=== PATIENT | male | born 1990 | race Caucasian/White ===

== ENCOUNTER 2017-12-30 12:30 | Emergency (ER) | payer MEDICARE, OTHER ==
[~2017-12-30] VITALS: Ht 204936.6 cm; Wt 63.0 kg
[2017-12-30 13:46] LABS: BASOPHILS % (AUTO) 0.2 % (0-1); EOSINOPHILS # (AUTO) 0.2 X10'3 (0-0.9); EOSINOPHILS % (AUTO) 2.3 % (0-6); HEMATOCRIT 44.9 % (42.0-52.0); HEMOGLOBIN 15.4 g/dl (14.0-17.9); LYMPHOCYTES # (AUTO) 1.8 X10'3 (1.1-4.8); LYMPHOCYTES % (AUTO) 23.8 % (21-51); MEAN CORPUSCULAR HEMOGLOBIN 30.2 PG (27.0-31.0); MEAN CORPUSCULAR HGB CONC 34.4 % (33.0-36.5); MEAN CORPUSCULAR VOLUME 87.7 FL (78-98); MEAN PLATELET VOLUME 6.7 FL (7.4-10.4); MONOCYTES # (AUTO) 0.6 X10'3 (0-0.9); MONOCYTES % (AUTO) 7.4 % (2-12); NEUTROPHILS % (AUTO) 66.3 % (42-75); PLATELET COUNT 321 X10'3 (140-440); RED BLOOD COUNT 5.12 X10'6 (4.70-6.10); RED CELL DISTRIBUTION WIDTH 13.4 % (11.5-14.5); WHITE BLOOD COUNT 7.6 X10'3 (4.5-11.0)
[2017-12-30 13:48] LABS: URINE AMPHETAMINE SCREEN POSITIVE (Neg); URINE BARBITUATE SCREEN NEGATIVE (Neg); URINE BENZODIAZEPINES SCREEN NEGATIVE (Neg); URINE CANNABINOID SCREEN POSITIVE (Neg); URINE COCAINE SCREEN NEGATIVE (Neg); URINE METHADONE SCREEN NEGATIVE (Neg); URINE OPIATE SCREEN NEGATIVE (Neg); URINE PHENCYCLIDINE SCREEN NEGATIVE (Neg)
[2017-12-30 13:52] LABS: CLARITY,URINE CLEAR (Clear); COLOR,URINE YELLOW (Yellow); GLUCOSE, URINE NEGATIVE (Neg); KETONES,URINE NEGATIVE (Neg); LEUKOCYTE ESTERASE ,URINE NEGATIVE (Neg); NITRITES, URINE NEGATIVE (Neg); OCCULT BLOOD,URINE NEGATIVE (Neg); PROTEIN,URINE NEGATIVE (Neg)
[2017-12-30 14:00] LABS: ALANINE AMINOTRANSFERASE 28 U/L (12-78); ALBUMIN 4.3 G/DL (3.4-5.0); ALBUMIN/GLOBULIN RATIO 1.1 (1.1-1.5); ALKALINE PHOSPHATASE 59 IU/L (46-116); ANION GAP 14 (8-16); ASPARTATE AMINO TRANSFERASE 21 U/L (10-37); BILIRUBIN,TOTAL 0.7 MG/DL (0.1-1.0); BLOOD UREA NITROGEN 10 MG/DL (7-18); BUN/CREATININE RATIO 10.9 (5.4-32.0); CALCIUM 9.1 MG/DL (8.5-10.1); CHLORIDE 104 MMOL/L (99-107); CREATININE 0.92 MG/DL (0.60-1.10); GLUCOSE 108 MG/DL (70-104); SODIUM 142 MMOL/L (135-145); TOTAL CARBON DIOXIDE 24.3 MMOL/L (24-32); TOTAL PROTEIN 8.1 G/DL (6.4-8.2); eGFR > 90 ML/MIN
[2017-12-30 14:03] LABS: UA COLLECTION TYPE VOIDED
[2017-12-30 14:09] LABS: ACETAMINOPHEN < 2.0 UG/ML (10-30); ETHANOL < 0.010 GM/DL (0.0-0.010)
[2017-12-30] MEDS ORDERED: potassium Cl oral solution 20 MEQ/15 ML PO STA (14:17)
[2017-12-30] MEDS ORDERED: LORazepam 2 mg/ml vial IV STA (14:17)
[2017-12-30] MEDS ORDERED: haloperidol lactate 5mg/ml inj IM ONE (14:55)
[2017-12-30] MEDS ORDERED: HYDR-3686 PO (16:44)
[2017-12-30] MEDS ORDERED: ARIP20TA4 PO (16:44)
[2017-12-30] MEDS ORDERED: LAMO100T89 PO (16:44)
[2017-12-30] MEDS ORDERED: hydrOXYzine 25 MG tablet PO PRN ×2 (17:00)
[2017-12-30] MEDS: lamoTRIgine 100mg tablet PO SCH (20:00)
[2017-12-31] MEDS ORDERED: aripiprazole 5mg tablet PO SCH (08:00)
[2017-12-31] MEDS: lamoTRIgine 100mg tablet PO SCH ×2 (08:34→20:40)
[2018-01-01] MEDS: lamoTRIgine 100mg tablet PO SCH ×2 (08:35→20:08)
[2018-01-01 17:34] VITALS: BP 122/77
[2018-01-01] MEDS ORDERED: potassium Cl 20 mEq SR tablet PO STA (19:59)
[2018-01-01] MEDS ORDERED: ARIP20TA4 PO ×2 (20:55→21:03)
[2018-01-01] MEDS ORDERED: aripiprazole 5mg tablet PO SCH (21:00)
[2018-01-01] MEDS ORDERED: HYDR-3686 PO (21:03)
== END 2018-01-01 20:37 ==
LOC: ER 12:32
DX: R45.851 Suicidal ideations (principal); R41.82 Altered mental status, unspecified; R31.9 Hematuria, unspecified; F12.90 Cannabis use, unspecified, uncomplicated; Z59.0 Homelessness
CPT/HCPCS: 36415; 80053; 80305; 80320; 80329; 81003; 85025; 96372; 96374; 99285; J1630; J2060; Q0177

== ENCOUNTER 2018-01-01 17:50 | Inpatient (IN) | payer MEDICARE, OTHER ==
[~2018-01-01] VITALS: Ht 186.7 cm; Wt 70.1 kg
[~2018-01-01 17:50] MED LIST: ARIP20TA4 PO; HYDR-3686 PO; LAMO100T89 PO
[2018-01-01] MEDS ORDERED: ARIP20TA4 PO ×2 (20:55→21:03)
[2018-01-01] MEDS ORDERED: HYDR-3686 PO (21:03)
[2018-01-01 21:20] VITALS: BP 113/63
[2018-01-01] MEDS: lamoTRIgine 100mg tablet PO SCH (21:26)
[2018-01-01] MEDS: aripiprazole 5mg tablet PO SCH (21:59)
[2018-01-02] MEDS ORDERED: magnesium hydroxide 30ml (MOM) UD suspension PO PRN (02:50)
[2018-01-02] MEDS ORDERED: acetaminophen 325mg tablet PO PRN ×2 (02:50)
[2018-01-02] MEDS ORDERED: mag hydrox/Alum hydrox/simeth 30ml oral suspension PO PRN (02:50)
[2018-01-02] MEDS: lamoTRIgine 100mg tablet PO SCH ×2 (07:25→21:15)
[2018-01-02 08:00] VITALS: BP 119/68
[2018-01-02 08:22] LABS: CHOL/HDL RATIO 3.3 (0.00-4.99); CHOLESTEROL 113 MG/DL (0-200); HDL CHOLESTEROL 34 MG/DL (35-60); HEMOGLOBIN A1C 5.3 % (4.5-6.2); LDL CHOLESTEROL 67 MG/DL (50-100); TRIGLYCERIDES 42 MG/DL (20-135)
[2018-01-02 09:15] LABS: ALBUMIN 3.7 G/DL (3.4-5.0); ANION GAP 10 (8-16); BLOOD UREA NITROGEN 19 MG/DL (7-18); BUN/CREATININE RATIO 22.9 (5.4-32.0); CHLORIDE 107 MMOL/L (99-107); CREATININE 0.83 MG/DL (0.60-1.10); GLUCOSE 84 MG/DL (70-104); POTASSIUM 4.3 MMOL/L (3.5-5.1); SODIUM 143 MMOL/L (135-145); TOTAL CARBON DIOXIDE 26.5 MMOL/L (24-32); eGFR > 90 ML/MIN
[2018-01-02 09:47] VITALS: BP 113/68
[2018-01-02 19:48] VITALS: BP 110/53
[2018-01-02] MEDS: aripiprazole 5mg tablet PO SCH (21:10)
[2018-01-03 08:00] VITALS: BP 105/56
[2018-01-03] MEDS: lamoTRIgine 100mg tablet PO SCH ×2 (08:59→20:11)
[2018-01-03] MEDS: aripiprazole 5mg tablet PO SCH (20:11)
[2018-01-03] MEDS: hydrOXYzine 25 MG tablet PO PRN (20:11)
[2018-01-03 20:33] VITALS: BP 117/71
[2018-01-04] MEDS: lamoTRIgine 100mg tablet PO SCH ×2 (07:45→20:34)
[2018-01-04 08:50] VITALS: BP 113/70
[2018-01-04] MEDS: hydrOXYzine 25 MG tablet PO PRN (12:31)
[2018-01-04 19:11] VITALS: BP 126/78
[2018-01-04] MEDS: aripiprazole 5mg tablet PO SCH (20:34)
[2018-01-05] MEDS: hydrOXYzine 25 MG tablet PO PRN (05:08)
[2018-01-05] MEDS: lamoTRIgine 100mg tablet PO SCH ×2 (07:44→20:23)
[2018-01-05 07:58] VITALS: BP 116/73
[2018-01-05 19:55] VITALS: BP 120/66
[2018-01-05] MEDS: aripiprazole 5mg tablet PO SCH (20:24)
[2018-01-06] MEDS ORDERED: LAMO100T89 PO (08:02)
[2018-01-06] MEDS ORDERED: ARIP20TA10 PO (08:02)
[2018-01-06] MEDS ORDERED: HYDR-3686 PO (08:02)
[2018-01-06] MEDS: lamoTRIgine 100mg tablet PO SCH (08:18)
[2018-01-06 08:32] VITALS: BP 126/78
== END 2018-01-06 10:15 | disposition home or self-care (01) | DRG 885 ==
LOC: ADULT MH 17:50
PROVIDERS: ADMIT Psychiatry & Neurology Psychiatry; ATTEND Psychiatry & Neurology Psychiatry
DX: F29 Unspecified psychosis not due to a substance or known physiological condition (principal); E87.6 Hypokalemia; F31.9 Bipolar disorder, unspecified; M54.5 Low back pain; G89.29 Other chronic pain; F15.10 Other stimulant abuse, uncomplicated; F12.10 Cannabis abuse, uncomplicated; F17.210 Nicotine dependence, cigarettes, uncomplicated; Z59.0 Homelessness
CPT/HCPCS: 36415; 80048; 80061; 83036; 87070; 93005; 99285; 99406; Q0177

== ENCOUNTER 2018-01-21 11:45 | Emergency (ER) | payer MEDICARE, OTHER ==
[~2018-01-21] VITALS: Ht 188 cm; Wt 51.0 kg
[~2018-01-21 11:45] MED LIST changes: +ARIP20TA10 PO; -ARIP20TA4 PO
[2018-01-21 11:48] VITALS: BP 134/69
== END 2018-01-21 13:06 | disposition home or self-care (01) ==
LOC: ER 11:46
DX: S90.822A Blister (nonthermal), left foot, initial encounter (principal); S90.821A Blister (nonthermal), right foot, initial encounter; F17.200 Nicotine dependence, unspecified, uncomplicated; Z59.0 Homelessness; X58.XXXA Exposure to other specified factors, initial encounter; Y93.89 Activity, other specified; Y92.89 Other specified places as the place of occurrence of the external cause; Y99.8 Other external cause status
CPT/HCPCS: 99281

== ENCOUNTER 2018-02-12 09:00 | Inpatient (IN) | payer MEDICARE, MEDICAID ==
[~2018-02-12] VITALS: Ht 188 cm; Wt 73.0 kg
[2018-02-12] VITALS (9 sets, daily range): BP systolic 96–134; BP diastolic 48–96
[2018-02-12] MEDS ORDERED: ceFAZolin 1000mg inj IV ONE (09:25)
[2018-02-12] MEDS ORDERED: normal saline 1000ML IV soln IVB ONE (09:25)
[2018-02-12] MEDS ORDERED: vancomycin/NS 1 GM ADD-VANTAGE 250 ML X 1 DOSE IV ONE (09:40)
[2018-02-12] MEDS ORDERED: ceFAZolin inj. 2,000 MG in normal saline 100ml IV soln 100 ML IV ONE (09:50)
[2018-02-12 09:57] LABS: BASOPHILS % (AUTO) 0 % (0-1); EOSINOPHILS # (AUTO) 0.3 X10'3 (0-0.9); EOSINOPHILS % (AUTO) 2.2 % (0-6); HEMATOCRIT 39.7 % (42.0-52.0); HEMOGLOBIN 13.6 g/dl (14.0-17.9); LYMPHOCYTES # (AUTO) 1.4 X10'3 (1.1-4.8); LYMPHOCYTES % (AUTO) 8.9 % (21-51); MEAN CORPUSCULAR HEMOGLOBIN 29.9 PG (27.0-31.0); MEAN CORPUSCULAR HGB CONC 34.3 % (33.0-36.5); MEAN CORPUSCULAR VOLUME 87.2 FL (78-98); MEAN PLATELET VOLUME 6.1 FL (7.4-10.4); MONOCYTES # (AUTO) 0.9 X10'3 (0-0.9); MONOCYTES % (AUTO) 5.6 % (2-12); NEUTROPHILS # (AUTO) 13.2 X10'3 (1.8-7.7); NEUTROPHILS % (AUTO) 83.3 % (42-75); PLATELET COUNT 403 X10'3 (140-440); RED BLOOD COUNT 4.55 X10'6 (4.70-6.10); RED CELL DISTRIBUTION WIDTH 13.5 % (11.5-14.5); WHITE BLOOD COUNT 15.9 X10'3 (4.5-11.0)
[2018-02-12 10:17] LABS: ALANINE AMINOTRANSFERASE 21 U/L (12-78); ALBUMIN 3.3 G/DL (3.4-5.0); ALBUMIN/GLOBULIN RATIO 0.8 (1.1-1.5); ALKALINE PHOSPHATASE 48 IU/L (46-116); ANION GAP 6 (8-16); ASPARTATE AMINO TRANSFERASE 12 U/L (10-37); BILIRUBIN,TOTAL 0.4 MG/DL (0.1-1.0); BLOOD UREA NITROGEN 14 MG/DL (7-18); BUN/CREATININE RATIO 20.6 (5.4-32.0); CALCIUM 8.7 MG/DL (8.5-10.1); CHLORIDE 104 MMOL/L (99-107); CREATININE 0.68 MG/DL (0.60-1.10); GLUCOSE 93 MG/DL (70-104); POTASSIUM 3.8 MMOL/L (3.5-5.1); SODIUM 139 MMOL/L (135-145); TOTAL PROTEIN 7.2 G/DL (6.4-8.2); eGFR > 90 ML/MIN
[2018-02-12] MEDS ORDERED: NO HOME MEDS (10:28)
[2018-02-12] MEDS ORDERED: ceFAZolin 1000mg inj ONE (12:15)
[2018-02-12] MEDS ORDERED: bacitracin 15gm ointment TP ONE (12:16)
[2018-02-12] MEDS ORDERED: desflurane 240ml liquid inh. IH ONE (12:30)
[2018-02-12] MEDS ORDERED: propofol 10mg/ml 20ml vial IV ONE (12:30)
[2018-02-12] MEDS ORDERED: rocuronium 10mg/ml inj IV ONE ×2 (12:30→12:48)
[2018-02-12] MEDS ORDERED: LIDOcaine 2% (20mg/ml) 5ml vial ONE ×2 (12:30→12:48)
[2018-02-12] MEDS ORDERED: succinylcholine 20mg/ml inj IV ONE ×2 (12:30→12:48)
[2018-02-12] MEDS ORDERED: midazolam 2 mg/2 ml injection ONE (12:42)
[2018-02-12] MEDS ORDERED: fentaNYL/PF 50MCG/1 ML 2ML syringe ONE (12:42)
[2018-02-12] MEDS ORDERED: LIDOcaine 2% 5ml jelly ONE (12:45)
[2018-02-12] MEDS ORDERED: propofol inj 20 ML IV ONE (12:48)
[2018-02-12] MEDS ORDERED: morphine 4 MG/ML inj SYRINge IV PRN ×4 (13:00→17:25)
[2018-02-12] MEDS ORDERED: acetaminophen 1,000mg/100ml IV 100 ML IV PRN (13:00)
[2018-02-12] MEDS ORDERED: ondansetron/PF 4mg/2ml inj IV PRN ×2 (13:00→17:25)
[2018-02-12] MEDS ORDERED: meperidine/PF 25mg/ml syringe IV PRN ×2 (13:00)
[2018-02-12] MEDS ORDERED: proCHLORperazine 10 MG/2 ml inj IV PRN (13:00)
[2018-02-12] MEDS ORDERED: ringers solution, lacted 1,000 ML IV SCH (13:00)
[2018-02-12] MEDS: meperidine/PF 25mg/ml syringe IV PRN ×2 (13:34→14:13)
[2018-02-12] MEDS ORDERED: magnesium hydroxide 30ml (MOM) UD suspension PO PRN (17:25)
[2018-02-12] MEDS ORDERED: potassium Cl 20 mEq SR tablet PO PRN ×2 (17:25)
[2018-02-12] MEDS ORDERED: acetaminophen 325mg tablet PO PRN (17:25)
[2018-02-12] MEDS ORDERED: magnesium 2GM in 50ml NS 50 ML IV PRN (17:25)
[2018-02-12] MEDS ORDERED: mag hydrox/Alum hydrox/simeth 30ml oral suspension PO PRN (17:25)
[2018-02-12] MEDS ORDERED: potassium Cl 40MEQ/NS 500ml 500 ML IV PRN ×2 (17:25)
[2018-02-12] MEDS ORDERED: magnesium 4gm in 100ml NS 100 ML IV PRN (17:25)
[2018-02-12] MEDS ORDERED: HYDROcodone/acetaminophen 10/325mg tab PO PRN ×3 (20:05→20:10)
[2018-02-13] MEDS: cefepime 1GM/NS ADD-VANTAGE 100 ML IV SCH ×3 (00:14→16:38)
[2018-02-13 02:30] VITALS: BP 99/53
[2018-02-13 06:00] VITALS: BP 96/48
[2018-02-13] MEDS: HYDROcodone/acetaminophen 10/325mg tab PO PRN ×2 (06:02→15:02)
[2018-02-13 06:58] LABS: BASOPHILS # (AUTO) 0.1 X10'3 (0-0.2); BASOPHILS % (AUTO) 1.2 % (0-1); EOSINOPHILS # (AUTO) 0.3 X10'3 (0-0.9); EOSINOPHILS % (AUTO) 2.6 % (0-6); HEMATOCRIT 39.3 % (42.0-52.0); HEMOGLOBIN 13.6 g/dl (14.0-17.9); LYMPHOCYTES # (AUTO) 1.5 X10'3 (1.1-4.8); MEAN CORPUSCULAR HEMOGLOBIN 29.9 PG (27.0-31.0); MEAN CORPUSCULAR HGB CONC 34.5 % (33.0-36.5); MEAN CORPUSCULAR VOLUME 86.6 FL (78-98); MEAN PLATELET VOLUME 6.6 FL (7.4-10.4); MONOCYTES # (AUTO) 0.6 X10'3 (0-0.9); MONOCYTES % (AUTO) 5.6 % (2-12); NEUTROPHILS # (AUTO) 8.7 X10'3 (1.8-7.7); NEUTROPHILS % (AUTO) 77.6 % (42-75); PLATELET COUNT 362 X10'3 (140-440); RED BLOOD COUNT 4.54 X10'6 (4.70-6.10); RED CELL DISTRIBUTION WIDTH 13.5 % (11.5-14.5); WHITE BLOOD COUNT 11.3 X10'3 (4.5-11.0)
[2018-02-13 07:19] LABS: ALANINE AMINOTRANSFERASE 19 U/L (12-78); ALBUMIN 2.9 G/DL (3.4-5.0); ALBUMIN/GLOBULIN RATIO 0.8 (1.1-1.5); ALKALINE PHOSPHATASE 49 IU/L (46-116); ANION GAP 10 (8-16); ASPARTATE AMINO TRANSFERASE 12 U/L (10-37); BILIRUBIN,TOTAL 0.6 MG/DL (0.1-1.0); BLOOD UREA NITROGEN 9 MG/DL (7-18); BUN/CREATININE RATIO 12.7 (5.4-32.0); CALCIUM 8.6 MG/DL (8.5-10.1); CHLORIDE 104 MMOL/L (99-107); CREATININE 0.71 MG/DL (0.60-1.10); GLUCOSE 84 MG/DL (70-104); MAGNESIUM 1.8 MG/DL (1.5-2.4); SODIUM 140 MMOL/L (135-145); TOTAL CARBON DIOXIDE 26.2 MMOL/L (24-32); TOTAL PROTEIN 6.6 G/DL (6.4-8.2); eGFR > 90 ML/MIN
[2018-02-13] MEDS: K and/or MAG REPLACEMENT MC SCH (08:00)
[2018-02-13 10:00] VITALS: BP 95/37
[2018-02-13] MEDS ORDERED: aripiprazole 5mg tablet PO SCH (11:30)
[2018-02-13] MEDS: lamoTRIgine 100mg tablet PO SCH ×2 (12:38→20:10)
[2018-02-13 14:30] VITALS: BP 96/40
[2018-02-13 18:30] VITALS: BP 103/46
[2018-02-13] MEDS: lactobacillus rhamnosus 10,000 MMU CELLS/CAPSULE PO SCH (20:10)
[2018-02-13] MEDS: aripiprazole 5mg tablet PO SCH (20:10)
[2018-02-13 22:30] VITALS: BP 91/42
[2018-02-14] MEDS: cefepime 1GM/NS ADD-VANTAGE 100 ML IV SCH ×4 (00:06→23:15)
[2018-02-14 06:00] VITALS: BP 114/57
[2018-02-14 07:07] LABS: BASOPHILS # (AUTO) 0.1 X10'3 (0-0.2); BASOPHILS % (AUTO) 0.7 % (0-1); EOSINOPHILS # (AUTO) 0.3 X10'3 (0-0.9); EOSINOPHILS % (AUTO) 3.6 % (0-6); HEMATOCRIT 37.6 % (42.0-52.0); HEMOGLOBIN 12.8 g/dl (14.0-17.9); LYMPHOCYTES # (AUTO) 1.9 X10'3 (1.1-4.8); LYMPHOCYTES % (AUTO) 25.8 % (21-51); MEAN CORPUSCULAR HEMOGLOBIN 29.9 PG (27.0-31.0); MEAN CORPUSCULAR HGB CONC 34.2 % (33.0-36.5); MEAN CORPUSCULAR VOLUME 87.6 FL (78-98); MEAN PLATELET VOLUME 6.2 FL (7.4-10.4); MONOCYTES # (AUTO) 0.7 X10'3 (0-0.9); MONOCYTES % (AUTO) 9.1 % (2-12); NEUTROPHILS # (AUTO) 4.5 X10'3 (1.8-7.7); NEUTROPHILS % (AUTO) 60.8 % (42-75); PLATELET COUNT 379 X10'3 (140-440); RED BLOOD COUNT 4.29 X10'6 (4.70-6.10); RED CELL DISTRIBUTION WIDTH 13.2 % (11.5-14.5); WHITE BLOOD COUNT 7.4 X10'3 (4.5-11.0)
[2018-02-14 07:31] LABS: ALANINE AMINOTRANSFERASE 18 U/L (12-78); ALBUMIN 2.7 G/DL (3.4-5.0); ALBUMIN/GLOBULIN RATIO 0.8 (1.1-1.5); ALKALINE PHOSPHATASE 37 IU/L (46-116); ANION GAP 5 (8-16); ASPARTATE AMINO TRANSFERASE 10 U/L (10-37); BILIRUBIN,TOTAL 0.3 MG/DL (0.1-1.0); BLOOD UREA NITROGEN 14 MG/DL (7-18); BUN/CREATININE RATIO 16.5 (5.4-32.0); CALCIUM 8.4 MG/DL (8.5-10.1); CHLORIDE 103 MMOL/L (99-107); CREATININE 0.85 MG/DL (0.60-1.10); GLUCOSE 79 MG/DL (70-104); MAGNESIUM 1.9 MG/DL (1.5-2.4); SODIUM 139 MMOL/L (135-145); TOTAL CARBON DIOXIDE 30.6 MMOL/L (24-32); TOTAL PROTEIN 6.3 G/DL (6.4-8.2); eGFR > 90 ML/MIN
[2018-02-14] MEDS: lamoTRIgine 100mg tablet PO SCH ×2 (07:54→20:21)
[2018-02-14] MEDS: lactobacillus rhamnosus 10,000 MMU CELLS/CAPSULE PO SCH ×2 (07:54→20:21)
[2018-02-14] MEDS: K and/or MAG REPLACEMENT MC SCH (08:00)
[2018-02-14 10:00] VITALS: BP 104/49
[2018-02-14 18:00] VITALS: BP 106/59
[2018-02-14] MEDS: aripiprazole 5mg tablet PO SCH (20:21)
[2018-02-14 22:00] VITALS: BP 111/50
[2018-02-15 05:20] LABS: BASOPHILS % (AUTO) 0.2 % (0-1); EOSINOPHILS # (AUTO) 0.3 X10'3 (0-0.9); EOSINOPHILS % (AUTO) 3.3 % (0-6); HEMATOCRIT 39.5 % (42.0-52.0); HEMOGLOBIN 13.4 g/dl (14.0-17.9); LYMPHOCYTES # (AUTO) 1.3 X10'3 (1.1-4.8); LYMPHOCYTES % (AUTO) 16.8 % (21-51); MEAN CORPUSCULAR HEMOGLOBIN 29.8 PG (27.0-31.0); MEAN CORPUSCULAR VOLUME 87.7 FL (78-98); MONOCYTES # (AUTO) 0.6 X10'3 (0-0.9); MONOCYTES % (AUTO) 8.1 % (2-12); NEUTROPHILS # (AUTO) 5.7 X10'3 (1.8-7.7); NEUTROPHILS % (AUTO) 71.6 % (42-75); PLATELET COUNT 418 X10'3 (140-440); RED BLOOD COUNT 4.51 X10'6 (4.70-6.10); WHITE BLOOD COUNT 7.9 X10'3 (4.5-11.0)
[2018-02-15 05:45] LABS: ALANINE AMINOTRANSFERASE 21 U/L (12-78); ALBUMIN/GLOBULIN RATIO 0.8 (1.1-1.5); ALKALINE PHOSPHATASE 40 IU/L (46-116); ANION GAP 5 (8-16); ASPARTATE AMINO TRANSFERASE 11 U/L (10-37); BILIRUBIN,TOTAL 0.2 MG/DL (0.1-1.0); BLOOD UREA NITROGEN 13 MG/DL (7-18); BUN/CREATININE RATIO 17.1 (5.4-32.0); CALCIUM 8.9 MG/DL (8.5-10.1); CHLORIDE 102 MMOL/L (99-107); CREATININE 0.76 MG/DL (0.60-1.10); GLUCOSE 87 MG/DL (70-104); MAGNESIUM 1.9 MG/DL (1.5-2.4); POTASSIUM 4.2 MMOL/L (3.5-5.1); SODIUM 137 MMOL/L (135-145); TOTAL CARBON DIOXIDE 29.6 MMOL/L (24-32); TOTAL PROTEIN 6.9 G/DL (6.4-8.2); eGFR > 90 ML/MIN
[2018-02-15 06:00] VITALS: BP 106/62
[2018-02-15] MEDS: lactobacillus rhamnosus 10,000 MMU CELLS/CAPSULE PO SCH (07:52)
[2018-02-15] MEDS: lamoTRIgine 100mg tablet PO SCH (07:52)
[2018-02-15] MEDS: cefepime 1GM/NS ADD-VANTAGE 100 ML IV SCH (07:53)
[2018-02-15] MEDS: K and/or MAG REPLACEMENT MC SCH (07:53)
[2018-02-15] MEDS ORDERED: ARIP5TAB20 PO (10:38)
[2018-02-15] MEDS ORDERED: LEVO500T2 PO (10:38)
[2018-02-15] MEDS ORDERED: LAMO100T89 PO (10:38)
[2018-02-15 11:48] VITALS: BP 117/56
[2018-03-22] MEDS ORDERED: CEPH500C5 PO (01:27)
[2018-03-22] MEDS ORDERED: DIPH-423 PO (01:27)
[2018-03-22] MEDS ORDERED: TRIA15CR61 TOP (01:27)
[2018-03-22] MEDS ORDERED: SULF1TAB49 PO (01:27)
[2018-03-22] MEDS ORDERED: PERM60CR19 TP (01:28)
== END 2018-02-15 12:25 | disposition home or self-care (01) | DRG 872 ==
LOC: ER 09:01 → ORTHO 4S 17:26
PROVIDERS: ADMIT Family Medicine; ATTEND Family Medicine
PROC: 0J9K00Z Drainage of Left Hand Subcutaneous Tissue and Fascia with Drainage Device, Open Approach (ICD-10-PCS; principal; 2018-02-12 12:40)
DX: A41.9 Sepsis, unspecified organism (principal); L02.512 Cutaneous abscess of left hand; F84.0 Autistic disorder; F12.90 Cannabis use, unspecified, uncomplicated; F29 Unspecified psychosis not due to a substance or known physiological condition; F31.9 Bipolar disorder, unspecified; M65.842 Other synovitis and tenosynovitis, left hand; F17.210 Nicotine dependence, cigarettes, uncomplicated; F43.10 Post-traumatic stress disorder, unspecified; M19.042 Primary osteoarthritis, left hand; Z59.0 Homelessness; L03.012 Cellulitis of left finger; B95.4 Other streptococcus as the cause of diseases classified elsewhere
CPT/HCPCS: 36415; 73130; 80053; 83735; 85025; 87070; 87075; 87077; 87186; 96365; 96366; 96375; 99285; A6222; A6258; A6446; A6449; A7000; J0330; J0690; J0692; J2001; J2175; J2250; J2405; J2704; J3010; J3370; J7030; J7120

== ENCOUNTER 2018-02-21 13:33 | Outpatient (CLI) | payer MEDICARE, MEDICAID ==
[~2018-02-21 13:33] MED LIST changes: -ARIP20TA10 PO; +ARIP5TAB20 PO; -HYDR-3686 PO; +LEVO500T2 PO
== END 2018-02-21 14:12 | disposition home or self-care (01) ==
LOC: ORTHO 13:33
PROVIDERS: ATTEND Nurse Practitioner Family
DX: M65.842 Other synovitis and tenosynovitis, left hand (principal); F17.210 Nicotine dependence, cigarettes, uncomplicated; F12.90 Cannabis use, unspecified, uncomplicated; F15.90 Other stimulant use, unspecified, uncomplicated; Z59.0 Homelessness; Z56.0 Unemployment, unspecified
CPT/HCPCS: 99213; A6449

== ENCOUNTER 2018-03-01 13:12 | Outpatient (CLI) | payer MEDICARE, MEDICAID ==
[~2018-03-01 13:12] MED LIST changes: -LEVO500T2 PO
== END 2018-03-01 13:51 | disposition home or self-care (01) ==
LOC: ORTHO 13:12
PROVIDERS: ATTEND Nurse Practitioner Family
DX: M65.822 Other synovitis and tenosynovitis, left upper arm (principal); Z59.0 Homelessness
CPT/HCPCS: 99213; A6449

== ENCOUNTER 2018-03-14 13:06 | Outpatient (CLI) | payer MEDICARE, MEDICAID ==
[2018-03-14 13:05] VITALS: BP 136/74
[2018-03-22] MEDS ORDERED: DIPH-423 PO (01:27)
[2018-03-22] MEDS ORDERED: SULF1TAB49 PO (01:27)
[2018-03-22] MEDS ORDERED: TRIA15CR61 TOP (01:27)
[2018-03-22] MEDS ORDERED: CEPH500C5 PO (01:27)
[2018-03-22] MEDS ORDERED: PERM60CR19 TP (01:28)
== END 2018-03-14 13:30 | disposition home or self-care (01) ==
LOC: ORTHO 13:06
PROVIDERS: ATTEND Nurse Practitioner Family
DX: M65.88 Other synovitis and tenosynovitis, other site (principal); F17.210 Nicotine dependence, cigarettes, uncomplicated; F31.9 Bipolar disorder, unspecified; Z56.0 Unemployment, unspecified; Z59.0 Homelessness
CPT/HCPCS: 99213

== ENCOUNTER 2018-03-14 20:02 | Emergency (ER) | payer MEDICARE, MEDICAID ==
[~2018-03-14] VITALS: Ht 188 cm; Wt 56.1 kg
[2018-03-14 20:10] VITALS: BP 129/87
== END 2018-03-14 21:44 | disposition home or self-care (01) ==
LOC: ER 20:02
DX: S99.922A Unspecified injury of left foot, initial encounter (principal); Z59.0 Homelessness; Z56.0 Unemployment, unspecified; Z98.890 Other specified postprocedural states; Z79.899 Other long term (current) drug therapy; X58.XXXA Exposure to other specified factors, initial encounter; Y93.89 Activity, other specified; Y92.89 Other specified places as the place of occurrence of the external cause; Y99.8 Other external cause status
CPT/HCPCS: 99281

== ENCOUNTER 2018-03-24 19:21 | Emergency (ER) | payer MEDICARE, MEDICAID ==
[~2018-03-24] VITALS: Ht 1860 cm; Wt 68.6 kg
[~2018-03-24 19:21] MED LIST changes: +CEPH500C5 PO; +DIPH-423 PO; +PERM60CR19 TP; +SULF1TAB49 PO; +TRIA15CR61 TOP
[2018-03-24] MEDS ORDERED: ARIP15TA8 PO (20:31)
[2018-03-24] MEDS ORDERED: LAMO100T89 PO (20:31)
[2018-03-24 20:36] LABS: BASOPHILS % (AUTO) 0 % (0-1); EOSINOPHILS # (AUTO) 0.2 X10'3 (0-0.9); EOSINOPHILS % (AUTO) 1.3 % (0-6); HEMATOCRIT 34.7 % (42.0-52.0); LYMPHOCYTES # (AUTO) 1.3 X10'3 (1.1-4.8); LYMPHOCYTES % (AUTO) 9.4 % (21-51); MEAN CORPUSCULAR HEMOGLOBIN 30.3 PG (27.0-31.0); MEAN CORPUSCULAR HGB CONC 34.6 % (33.0-36.5); MEAN CORPUSCULAR VOLUME 87.5 FL (78-98); MEAN PLATELET VOLUME 6.5 FL (7.4-10.4); MONOCYTES % (AUTO) 6.9 % (2-12); NEUTROPHILS # (AUTO) 11.4 X10'3 (1.8-7.7); NEUTROPHILS % (AUTO) 82.4 % (42-75); PLATELET COUNT 296 X10'3 (140-440); RED BLOOD COUNT 3.97 X10'6 (4.70-6.10); RED CELL DISTRIBUTION WIDTH 13.6 % (11.5-14.5); WHITE BLOOD COUNT 13.8 X10'3 (4.5-11.0)
[2018-03-24] MEDS ORDERED: CEPH-572 PO (20:38)
[2018-03-24] MEDS ORDERED: DIPH25CA83 PO (20:38)
[2018-03-24] MEDS ORDERED: PERM60CR19 TP (20:38)
[2018-03-24] MEDS ORDERED: SULF1TAB49 PO (20:38)
[2018-03-24 20:56] LABS: ALBUMIN 3.6 G/DL (3.4-5.0); ANION GAP 8 (8-16); BILIRUBIN,TOTAL 0.8 MG/DL (0.1-1.0); BLOOD UREA NITROGEN 17 MG/DL (7-18); BUN/CREATININE RATIO 20.5 (5.4-32.0); CALCIUM 8.5 MG/DL (8.5-10.1); CHLORIDE 103 MMOL/L (99-107); CREATININE 0.83 MG/DL (0.60-1.10); GLUCOSE 137 MG/DL (70-104); POTASSIUM 3.5 MMOL/L (3.5-5.1); SODIUM 140 MMOL/L (135-145); TOTAL CARBON DIOXIDE 28.6 MMOL/L (24-32); TOTAL PROTEIN 7.2 G/DL (6.4-8.2); eGFR > 90 ML/MIN
[2018-03-24 20:56] LABS: CLARITY,URINE CLEAR (Clear); COLOR,URINE YELLOW (Yellow); GLUCOSE, URINE NEGATIVE (Neg); KETONES,URINE NEGATIVE (Neg); LEUKOCYTE ESTERASE ,URINE NEGATIVE (Neg); NITRITES, URINE NEGATIVE (Neg); OCCULT BLOOD,URINE NEGATIVE (Neg); PH,URINE 5.5 (4.8-8.0); PROTEIN,URINE NEGATIVE (Neg); UROBILINOGEN,URINE 0.2 E.U/dL (0.2-1.0)
[2018-03-24 20:57] LABS: UA COLLECTION TYPE CLN CATCH MIDSTREAM
[2018-03-24 20:57] LABS: ALANINE AMINOTRANSFERASE 19 U/L (12-78); ALKALINE PHOSPHATASE 65 IU/L (46-116); ASPARTATE AMINO TRANSFERASE 14 U/L (10-37)
[2018-03-24] MEDS ORDERED: Permethrin Cream 60gm TP SCH (21:05)
[2018-03-24 21:06] LABS: ETHANOL < 0.010 GM/DL (0.0-0.010)
[2018-03-24 21:09] LABS: ACETAMINOPHEN < 2.0 UG/ML (10-30)
[2018-03-24 21:16] LABS: URINE AMPHETAMINE SCREEN POSITIVE (Neg); URINE BARBITUATE SCREEN NEGATIVE (Neg); URINE BENZODIAZEPINES SCREEN NEGATIVE (Neg); URINE CANNABINOID SCREEN POSITIVE (Neg); URINE COCAINE SCREEN NEGATIVE (Neg); URINE METHADONE SCREEN NEGATIVE (Neg); URINE OPIATE SCREEN NEGATIVE (Neg); URINE PHENCYCLIDINE SCREEN NEGATIVE (Neg)
[2018-03-24] MEDS ORDERED: diphenhydrAMINE 25mg capsule PO PRN (21:45)
[2018-03-25] MEDS ORDERED: diphenhydrAMINE 25mg capsule PO SCH (02:00)
[2018-03-25] MEDS ORDERED: aripiprazole 5mg tablet PO SCH (08:00)
[2018-03-25] MEDS: cephalexin 500mg capsule PO SCH ×4 (10:09→20:07)
[2018-03-25] MEDS: lamoTRIgine 100mg tablet PO SCH ×2 (10:10→20:07)
[2018-03-25] MEDS: sulfamethoxazole/trimethoprim DS (800/160mg) tablet PO SCH ×2 (10:10→20:07)
[2018-03-25] MEDS ORDERED: ibuprofen tablet 400 MG TABLET PO PRN (18:00)
[2018-03-25] MEDS: lactobacillus rhamnosus 10,000 MMU CELLS/CAPSULE PO SCH (20:07)
[2018-03-25] MEDS: aripiprazole 5mg tablet PO SCH (20:07)
[2018-03-26] MEDS: lactobacillus rhamnosus 10,000 MMU CELLS/CAPSULE PO SCH ×2 (08:05→21:02)
[2018-03-26] MEDS: lamoTRIgine 100mg tablet PO SCH ×2 (08:05→21:02)
[2018-03-26] MEDS: sulfamethoxazole/trimethoprim DS (800/160mg) tablet PO SCH ×2 (08:05→21:02)
[2018-03-26] MEDS: cephalexin 500mg capsule PO SCH ×4 (08:06→21:02)
[2018-03-26] MEDS: aripiprazole 5mg tablet PO SCH (21:02)
[2018-03-27] MEDS: sulfamethoxazole/trimethoprim DS (800/160mg) tablet PO SCH ×2 (09:20→20:13)
[2018-03-27] MEDS: lactobacillus rhamnosus 10,000 MMU CELLS/CAPSULE PO SCH ×2 (09:20→20:13)
[2018-03-27] MEDS: lamoTRIgine 100mg tablet PO SCH ×2 (09:20→20:13)
[2018-03-27] MEDS: cephalexin 500mg capsule PO SCH ×4 (09:21→20:14)
[2018-03-27 17:13] VITALS: BP 102/54
[2018-03-27] MEDS: aripiprazole 5mg tablet PO SCH (20:13)
== END 2018-03-28 00:49 | disposition home or self-care (01) ==
LOC: ER 19:21
DX: S10.91XA Abrasion of unspecified part of neck, initial encounter (principal); S50.819A Abrasion of unspecified forearm, initial encounter; F31.9 Bipolar disorder, unspecified; R45.851 Suicidal ideations; B86 Scabies; F41.9 Anxiety disorder, unspecified; Z86.14 Personal history of Methicillin resistant Staphylococcus aureus infection; F12.90 Cannabis use, unspecified, uncomplicated; F15.90 Other stimulant use, unspecified, uncomplicated; Z56.0 Unemployment, unspecified; Z59.0 Homelessness; Z79.899 Other long term (current) drug therapy; X78.1XXA Intentional self-harm by knife, initial encounter; Y93.89 Activity, other specified; Y92.89 Other specified places as the place of occurrence of the external cause; Y99.8 Other external cause status
CPT/HCPCS: 36415; 80053; 80305; 80320; 80329; 81003; 84443; 85025; 99285